=== PATIENT | female | born 1950 | race Caucasian/White ===

== ENCOUNTER → 2023-11-08 11:43 | Outpatient (REF) | payer MEDICARE, OTHER, SELFPAY | LOC: HWWDC 11:43 | PROVIDERS: ATTENDING PHYSICIAN Family Medicine | DX: Z12.31 Encounter for screening mammogram for malignant neoplasm of breast (principal) | CPT/HCPCS: 77063; 77067 ==

== ENCOUNTER 2024-01-15 10:04 | Emergency (ER) | payer MEDICARE, OTHER, SELFPAY ==
[2024-01-15 10:12] VITALS: BP 131/59
--- NOTE | 2024-01-15 10:50 | ED.GENMED ---
History of Present Illness
General
Chief Complaint: Abdominal Symptoms
Time Seen by Provider: 01/15/24 10:38
History of Present Illness
History of Present Illness:
73-year-old female with history of insulin-dependent diabetes, CHF, hypertension, and hyperlipidemia presents to the emergency department for evaluation of persistent nausea and general malaise as well as diarrhea. Initially became sick on
while visiting family in [place], went to the ER locally in [place], received IV fluids and nausea medication, had a CT scan showing no acute process and labs revealing mild DYANA. She was recommended to be admitted for IV fluids however
declined. Concerned that she has not urinated in greater than 24 hours. Reports generalized myalgias as well.
Past History
Past History
ED Past Medical History: CAD, CVA, HTN, Hypercholesterolemia, IDDM, [place] and Other (Ulcer, Cellulitis, Upper GI bleeding)
ED Past Surgical History: Cardiac (Stent X 2, Pacemaker), Cholecystectomy and Other (hernia)
Social History
Tobacco: Non-smoker
Alcohol: None
Personal:
Living: alone
Family History
Family History: Other (Coronary artery disease, diabetes, mother with polio, father with [place])
Review of Systems
Review of Systems
Allergies reviewed?: Yes
All Other Systems: ROS reviewed and negative except as documented in HPI and ROS
Phy Exam
Physical Exam
Physical Exam:
GEN: Well appearing, NAD, WDWN
Eyes: PERRLA, EOMs intact, no scleral icterus
HENT: NCAT, oral mucosa moist
Lungs: CTAB, no wheezes, rales, rhonchi, normal chest wall excursion
Cardiac: RRR, no M/R/G, no peripheral edema. Radial pulses 2+ bilat
Abdomen: S, NT, ND, NABS, no masses or hepatosplenomegaly
Neuro: AO x 3
MSK: No gross deformity or ecchymosis. No edema. No digital clubbing
Skin: No rashes, petechiae. Normal color, no pallor or jaundice.
Psych: Calm, cooperative, proper hygiene
Course
Orders/Labs/Results
Orders:
Orders
01/15/24 10:48
0.9% Sodium Chloride 1000 ml [Nss] 1,000 ml IV BOLUS
01/15/24 10:49
Ondansetron Injectable [Zofran] 4 mg IV NOW STA
01/15/24 10:53
Complete Blood Count/With Diff Urgent
Comprehensive Metabolic Panel Urgent
Lipase Urgent
01/15/24 13:27
Furosemide [Lasix] 20 mg IV NOW STA
Abnormal Lab Results
01/15/24
10:53
WBC 4.0 L 10^3/uL
(4.8-10.8)
Plt Count 64 L 10^3/uL
(130-400)
MPV 13.8 H fL
(7.4-10.4)
Absolute Lymphs (auto) 0.8 L 10^3/uL
(1.2-3.4)
Glucose 182 H mg/dl
(70-99)
Calcium 8.2 L mg/dl
(8.4-10.2)
Total Protein 5.7 L g/dl
(6.3-8.2)
01/15/24 10:53
01/15/24 10:53
Vital Signs
Initial and Last Documented VS:
Initial Vital Signs
Temp Pulse Resp BP Pulse Ox
97.9 F 64 16 131/59 95
01/15/24 10:12 01/15/24 10:12 01/15/24 10:12 01/15/24 10:12 01/15/24 10:12
Last Documented Vital Signs
Temp Pulse Resp BP Pulse Ox
97.9 F 74 16 119/84 99
01/15/24 10:12 01/15/24 14:40 12/02/24 14:40 01/15/24 14:40 01/15/24 14:40
MDM/Problems Addressed
MDM/Problems Addressed:
Patient's labs improved compared to review of records from her hospital stay in [place]. Likely self-limited viral syndrome, tolerating p.o. at time of discharge. Recommend outpatient stool culture if diarrhea persist for 3-5 further days
*Critical Care Note
Total Time (30-74mins, 75-104mins- exclusive of procedures): Not Applicable
ED Attending Note
-
Portions of this chart may have been created with voice recognition software.� Occasional wrong word or��sound alike� substitutions may have occurred due to the inherent limitations of voice recognition software.
Discharge Plan
Departure
Patient Disposition: Home (Routine Discharge)
Date of Disposition: 01/15/24
Time of Disposition: 14:22
Patient with high blood pressure during this ER visit?: No
Discharge Problem:
Gastroenteritis
Instructions: Nausea and Vomiting, Adult (DC)
Prescriptions:
No Action
isosorbide mononitrate 30 MG tablet extended release 24 hr
30 mg PO DAILY
aspirin 81 MG tablet,delayed release (DR/EC)
81 mg PO DAILY
metoprolol succinate 25 MG tablet extended release 24 hr
25 mg PO DAILY
nitroglycerin 0.4 MG tablet, sublingual
0.4 mg sublingual [id number] PRN (Reason: chest pain) Qty: 25 5RF
furosemide 20 MG tablet
40 mg PO DAILY
bupropion HCl 300 MG tablet extended release 24 hr
300 mg PO DAILY
simvastatin 20 MG tablet
20 mg PO QPM
potassium chloride [Klor-Con M20] 20 MEQ tablet,ER particles/crystals
20 meq PO BID Qty: 60 0RF
Jardiance 10 MG tablet
10 mg PO DAILY Qty: 30 0RF
pantoprazole 40 MG tablet,delayed release (DR/EC)
40 mg PO HS
losartan 100 MG tablet
25 mg PO DAILY
Calcium 1200mg +D3
1 tab PO HS
insulin degludec [Tresiba FlexTouch U-100] 100 UNIT/ML insulin pen
10 unit SC HS
timolol 0.5 % Drops
1 drp OPHTHALMIC (EYE) BID
metformin 500 mg Tablet
500 mg PO DAILY
Referrals:
Tommie Knight Jr., DO [Family Provider] -
Interventions
Interventions:
*Risk Screen - Suicide Last Done: 01/15/24 10:15
*General Assessment Last Done: 01/15/24 14:07
*Neglect/Abuse Screening Last Done: 01/15/24 10:15
*ED COVID-19 Vaccine History Last Done: 01/15/24 14:07
*Nursing Disposition Last Done: 01/15/24 14:40
HQ-Cdqxpq-Ikymlczqpd Assessment Last Done: 01/15/24 14:07
Discharge Date and Time
Discharge Date/Time: 01/15/24 14:40
Print Language: KYRGYZ
[2024-01-15 10:51] VITALS: BP 114/56
[2024-01-15] MEDS: NSS 1000 IV (10:58)
[2024-01-15] MEDS: ZOFRAN 4 MG IV (10:58)
[2024-01-15 11:00] VITALS: BP 117/53
[2024-01-15 11:13] LABS: ALT (SGPT) 24 U/L (0-35); AST (SGOT) 29 U/L (14-36); Albumin 3.5 g/dl (3.5-5.0); Alkaline Phosphatase 50 U/L (38-126); Blood Urea Nitrogen 11 mg/dl (7-17); Calcium 8.2 mg/dl (8.4-10.2); Carbon Dioxide 25 mmol/L (22-30); Chloride 105 mmol/L (98-107); Glucose 182 mg/dl (70-99); Lipase 47 U/L (23-300); Potassium 3.5 mmol/L (3.5-5.1); Sodium 139 mmol/L (135-145); Total Bilirubin 0.9 mg/dl (0.2-1.3); Total Protein 5.7 g/dl (6.3-8.2); eGFR > 60.00
[2024-01-15 11:14] LABS: % Basophils 0.7 % (0-2); % Eosinophils 2.5 % (0-6); % Immature Granulocytes 0.5 % (0-0.5); % Lymphocytes 20.6 % (20.5-51.1); % Monocytes 6.7 % (1.7-9.3); Absolute Eosinophils 0.1 10^3/uL (0-0.7); Absolute Lymphocytes 0.8 10^3/uL (1.2-3.4); Absolute Monocytes 0.3 10^3/uL (0.1-0.6); Absolute Neutrophils 2.8 10^3/uL (1.4-6.5); Hematocrit 39.8 % (37.0-47.0); Hemoglobin 13.8 g/dL (12.0-16.0); Mean Corp Hgb Conc. 34.7 g/dL (33.0-37.0); Mean Corpuscular Hgb 30.7 pg (27.0-31.0); Mean Corpuscular Volume 88.6 fL (81.0-99.0); Nucleated Red Blood Cells % 0 %; Red Blood Cell Count 4.49 10^6/uL (4.20-5.40); Red Cell Dist. Width 13.1 % (11.5-14.5)
[2024-01-15 12:00] VITALS: BP 125/58
[2024-01-15 12:29] LABS: Mean Platelet Volume 13.8 fL (7.4-10.4); Platelet Count 64 10^3/uL (130-400)
[2024-01-15 13:00] VITALS: BP 121/68
[2024-01-15] MEDS: LASIX 20 MG IV (13:36)
[2024-01-15 14:40] VITALS: BP 119/84
== END 2024-01-15 14:40 | disposition home or self-care (01) ==
LOC: EMR 10:04
PROVIDERS: Physician Assistant; EMERGENCY PHYSICIAN Emergency Medicine; FAMILY PHYSICIAN Family Medicine
DX: K52.9 Noninfective gastroenteritis and colitis, unspecified (principal); I50.9 Heart failure, unspecified; I11.0 Hypertensive heart disease with heart failure; E78.00 Pure hypercholesterolemia, unspecified; E11.9 Type 2 diabetes mellitus without complications
CPT/HCPCS: 99284; 96374; 96375; 96361; 80053; 83690; 85025

== ENCOUNTER → 2024-05-06 11:09 | Outpatient (REF) | payer MEDICARE, OTHER, SELFPAY | LOC: HWRCS 11:09 | PROVIDERS: ATTENDING PHYSICIAN Nurse Practitioner Gerontology; FAMILY PHYSICIAN Family Medicine | DX: I50.32 Chronic diastolic (congestive) heart failure (principal); Z95.2 Presence of prosthetic heart valve | CPT/HCPCS: 93306 ==

== ENCOUNTER 2024-06-21 13:01 | Emergency (ER) | payer MEDICARE, OTHER, SELFPAY ==
[2024-06-21 13:03] VITALS: BP 122/66
[2024-06-21 13:59] LABS: Hematocrit 41.5 % (37.0-47.0); Mean Corp Hgb Conc. 33.7 g/dL (33.0-37.0); Mean Corpuscular Hgb 30.2 pg (27.0-31.0); Mean Corpuscular Volume 89.6 fL (81.0-99.0); Red Blood Cell Count 4.63 10^6/uL (4.20-5.40); White Blood Cell Count 6.3 10^3/uL (4.8-10.8)
[2024-06-21 14:00] LABS: % Basophils 0.8 % (0-2); % Eosinophils 1.8 % (0-6); % Immature Granulocytes 0.5 % (0-0.5); % Lymphocytes 16.1 % (20.5-51.1); % Monocytes 6.9 % (1.7-9.3); % Neutrophils 73.9 % (42.2-75.2); Absolute Basophils 0.1 10^3/uL (0-0.2); Absolute Eosinophils 0.1 10^3/uL (0-0.7); Absolute Monocytes 0.4 10^3/uL (0.1-0.6); Absolute Neutrophils 4.6 10^3/uL (1.4-6.5); Nucleated Red Blood Cells % 0 %
[2024-06-21 14:02] LABS: ALT (SGPT) 33 U/L (0-35); AST (SGOT) 26 U/L (14-36); Albumin 4.2 g/dl (3.5-5.0); Alkaline Phosphatase 64 U/L (38-126); Blood Urea Nitrogen 21 mg/dl (7-17); Calcium 9.1 mg/dl (8.4-10.2); Carbon Dioxide 25 mmol/L (22-30); Chloride 106 mmol/L (98-107); Glucose 164 mg/dl (70-99); Potassium 4.5 mmol/L (3.5-5.1); Sodium 141 mmol/L (135-145); Total Protein 6.4 g/dl (6.3-8.2); eGFR 59.12
[2024-06-21 14:12] LABS: Troponin I < 0.012 ng/ml
[2024-06-21 14:55] LABS: Platelet Count 88 10^3/uL (130-400)
--- NOTE | 2024-06-21 15:56 | ED.GENMED ---
History of Present Illness
General
Chief Complaint: Abdominal Symptoms
Source: patient
Exam Limitations: none
Time Seen by Provider: 06/21/24 15:53
Nursing documentation reviewed up to this point in time: agreed with
History of Present Illness
History of Present Illness:
74-year-old female with history of CVA, CHF, HTN, HLD, [place], pacemaker, cardiac stents, TAVR 2020, GI bleed, IDDM, depression presents stating she had diarrhea all day 5 days ago, took one Imodium, none since. Has been feeling fatigued, today 'my
heaad got fuzzy,' 'I'm not waking very well, I can't walk a straight line even with my walker.' 'The machine on my night stand is going off every night for a week,' 'my blood sugar was 60 on Monday and 55 on Monday for the first time in my life,'
'the P/T came and took my blood pressure and it was 85/55 on Monday.'
States the P/T called her PCP about her blood pressure and was told to contact her semiconductor engineer, who she states told her to stop her BP med
States the P/T also called her Business Asst about the low blood sugars and she was told to stop her Insulin.
Has also been having pain around her pacemaker site, she spoke to the semiconductor engineer at [facility] 2 weeks ago and had echo and EKG in office and reassured.
Her PCP added a second antidepressant approx 3 months ago but it 'made me lethargic' and she is in process of weaning off of it. She cannot recall the name (pharmacy updating med list now)
She states she lives alone and is concerned with the low blood sugars and BP. She does admit that her low BP was not rechecked.
Past History
Past History
ED Past Medical History: CAD, CVA, HTN, Hypercholesterolemia, IDDM, [place] and Other (Ulcer, Cellulitis, Upper GI bleeding)
ED Past Surgical History: Cardiac (Stent X 2, Pacemaker), Cholecystectomy and Other (hernia)
Social History
Tobacco: Non-smoker
Alcohol: None
Personal:
Living: alone
Family History
Family History: Other (Coronary artery disease, diabetes, mother with polio, father with [place])
Review of Systems
Review of Systems
Allergies reviewed?: Yes
All Other Systems: ROS reviewed and negative except as documented in HPI and ROS
Constitutional: Reports fatigue; Denies fever
Respiratory: Denies trouble breathing
Cardiac: Denies chest pain
ABD/GI: Denies abdominal pain, nausea, vomiting, diarrhea, bloody stools or black stools
: Denies dysuria, frequency or difficulty voiding
Musculoskeletal: Reports edema (chronic bilateral ankle edema)
Skin: Reports no symptoms
Neurological: Reports headache (states this is chronic, intermittent, no change from her usual); Denies dizzy (states lightheaded at times with getting up to stand, this is not new for her), weakness or numbness
Psychiatric: Reports anxiety (about health)
Phy Exam
Physical Exam
Physical Exam:
GENERAL: No acute distress. A&Ox3.
CONSTITUTIONAL: Afebrile.
EYES: clear, conjunctivae normal
ENMT: moist mucus membranes, Pharynx nl
RESPIRATORY: Regular respirations, nonlabored, lungs clear.
CARDIOVASCULAR: Regular rate and rhythm, no murmurs, no rubs.
GI: Soft, nontender, normal BS
MUSCULOSKELETAL: Moves with ease. Well perfused. +1 bilateral ankle edema.
SKIN: Warm, dry, pink
PSYCH: Normal mood and affect. Well kept, interactive and appropriate
NEUROLOGIC: Awake, alert and oriented. No focal neurological deficits
Course
Orders/Labs/Results
Orders:
Orders
06/21/24 13:15
Electrocardiogram (*1) Urgent
Reason for Study: Chest Pain
Cardiac Monitoring- Treatment ONCE
EKG- Treatment ONCE
IV Insert/Care/Rem.- Treatment PRN
O2 Therapy [RESP] Urgent
Titrate/Wean O2 to maintain O2 sat greater than (%): 90
Special Instructions: Maintain sats >/=90%
Pulse Ox/spot Check [RESP] Urgent
Quantity: 1
Special Instructions: ON ROOM AIR
06/21/24 13:25
Complete Blood Count/With Diff Urgent
Comprehensive Metabolic Panel Urgent
Troponin I Urgent
06/21/24 16:20
Orthostatic VS- Treatment ONCE
Abnormal Lab Results
06/21/24
13:25
Plt Count 88 L 10^3/uL
(130-400)
Absolute Lymphs (auto) 1.0 L 10^3/uL
(1.2-3.4)
Lymphocytes % 16.1 L %
(20.5-51.1)
BUN 21 H mg/dl
(7-17)
Glucose 164 H mg/dl
(70-99)
06/21/24 13:25
06/21/24 13:25
Vital Signs
Initial and Last Documented VS:
Initial Vital Signs
Temp Pulse Resp BP Pulse Ox
98.1 F 70 16 122/66 97
06/21/24 13:03 06/21/24 13:03 06/21/24 13:03 06/21/24 13:03 06/21/24 13:03
Last Documented Vital Signs
Temp Pulse Resp BP Pulse Ox
98.1 F 64 22 125/80 99
06/21/24 13:03 06/21/24 16:45 06/21/24 16:45 06/21/24 16:45 06/21/24 16:45
MDM/Problems Addressed
Differential Diagnosis Includes:
dehydration, hypoglycemia, orthostatic hypotension, anxiety
MDM/Problems Addressed:
74-year-old female with history of CVA, CHF, HTN, HLD, [place], pacemaker, cardiac stents, TAVR 2020, GI bleed, IDDM, depression presents stating she had diarrhea all day 5 days ago, took one Imodium, none since. Has been feeling fatigued, today 'my
heaad got fuzzy,' 'I'm not waking very well, I can't walk a straight line even with my walker.' 'The machine on my night stand is going off every night for a week,' 'my blood sugar was 60 on Monday and 55 on Monday for the first time in my life,'
'the P/T came and took my blood pressure and it was 85/55 on Monday.'
States the P/T called her PCP about her blood pressure and was told to contact her semiconductor engineer, who she states told her to stop her BP med
States the P/T also called her Business Asst about the low blood sugars and she was told to 'stop my Insulin.'
Has also been having pain around her pacemaker site, she spoke to the semiconductor engineer at [facility] 2 weeks ago and had echo and EKG in office and reassured.
Her PCP added a second antidepressant approx 3 months ago but it 'made me lethargic' and she is in process of weaning off of it. She cannot recall the name (pharmacy updating med list now)
She states she lives alone and is concerned with the low blood sugars and BP. She does admit that her low BP was not rechecked.
Med list updated
Pt has Dexcom on her arm and can see her BS at any time. It is now 119. She states she hasn't eaten all day.
4:45 p.m.
Orthostatics neg
Pt admits her lightheadedness is chronic and she's been told to change positions slowly. She is on Eliquis and denies ant recent head injury, states her headache is mild and not unusual for her. No indication for head CT at this time.
She is OOB and ambulating well with her cane.
When asked about her ankle swelling, she states she does not take her Lasix because if the water in her ankles goes away, her legs won't hold her up
She obviously needs a lot of teaching/education about her meds, her symptoms, dealing with her diabetes and BP, etc. Strongly encouraged daughter to go with her to her next appt. and daughter is willing to do this.
Blood sugar 126 on her monitor
She is asking to be discharged. Offered food tray but daughter ordered them dinner and she will eat at home.
Nothing worrisome in workup here today.
It is reasonable to hold her Tresiba 10 Units P.M. until she speaks with her Business Asst Monday
Pt reassured. Stable for discharge
*EKG
EKG Intrepretation Date: 06/21/24
Interpretation: abnormal
Comparison EKG: changes noted (atrial paced)
Heart Rate: 74
Rate: normal
Rhythm: other (atrial paced)
Saxe: normal axis
Interval: other (prolonged AV conduction)
QRS Pattern: wide non-specific
Ischemia: no ischemia
*Critical Care Note
Total Time (30-74mins, 75-104mins- exclusive of procedures): Not Applicable
ED Attending Note
-
Portions of this chart may have been created with voice recognition software.� Occasional wrong word or��sound alike� substitutions may have occurred due to the inherent limitations of voice recognition software.
Discharge Plan
Departure
Patient Disposition: Home (Routine Discharge)
Date of Disposition: 06/21/24
Time of Disposition: 16:46
Patient with high blood pressure during this ER visit?: No
Condition: Good
Discharge Problem:
Fatigue, Anxiety about health
Instructions: Fatigue (DC), Anxiety in adults - ED discharge instructions
Prescriptions:
No Action
metoprolol succinate 25 MG tablet extended release 24 hr
12.5 mg PO DAILY
nitroglycerin 0.4 MG tablet, sublingual
0.4 mg sublingual [id number] PRN (Reason: chest pain) Qty: 25 5RF
bupropion HCl 300 MG tablet extended release 24 hr
300 mg PO DAILY
Jardiance 10 MG tablet
10 mg PO DAILY Qty: 30 0RF
pantoprazole 40 MG tablet,delayed release (DR/EC)
40 mg PO HS
calcium carbonate-vitamin D3 [Calcium 600 + D(3)] 600 mg-10 mcg (400 unit) Tablet
1 tab PO DAILY Qty: 0
insulin degludec [Tresiba FlexTouch U-100] 100 UNIT/ML insulin pen
10 unit SC HS
Theragen Tablet
1 tab PO DAILY
sertraline 25 mg Tablet
25 mg PO DAILY
metformin 500 mg Tablet Extended Release 24 Hr
500 mg PO QPM
Eliquis 5 mg Tablet
5 mg PO BID
Referrals:
Your, Primary doctor and Business Asst [Other] - Follow up in 2-3 days
Activity Restrictions/Additional Instructions:
As we discussed, nothing worrisome in your workup here today
Your blood pressure is good, your blood sugar is good.
Call on Monday and make an appointment with your primary doctor. Have your daughter go with you to your next visit to straighten all these issues out that you are having confusion and concerned about. Call your mail inserter on Monday and
confirm that you are to stop your insulin. Keep a close watch on your blood sugar over the weekend.
Continue to go from a laying down to a sitting position and then to a standing position slowly as you have been instructed due to your feeling lightheaded when you get up.
Return here over the weekend if you become significantly more lightheaded, your blood sugar remains below 60, your blood pressure remains low or you feel sicker in any way
Interventions
Interventions:
*Risk Screen - Suicide Last Done: 06/21/24 13:03
*General Assessment Last Done: 06/21/24 13:03
*Neglect/Abuse Screening Last Done: 06/21/24 13:03
*ED- Fall Risk Assessment Last Done: 06/21/24 17:05
*ED COVID-19 Vaccine History Last Done: 06/21/24 17:05
*Nursing Disposition Last Done: 06/21/24 17:05
OX-Msimcl-Dcxzwnmrku Assessment Last Done: 06/21/24 16:58
Discharge Date and Time
Discharge Date/Time: 06/21/24 17:13
Print Language: CHINESE
[2024-06-21 16:20] VITALS: BP 125/80; BP 132/85; BP 136/71; PULSE 64; PULSE 68; PULSE 69
[2024-06-21 16:45] VITALS: BP 125/80
== END 2024-06-21 17:13 | disposition home or self-care (01) ==
LOC: EMR 13:01
PROVIDERS: Emergency Medicine; EMERGENCY PHYSICIAN Student in an Organized Health Care Education/Training Program
DX: F41.9 Anxiety disorder, unspecified (principal); R53.83 Other fatigue; I11.0 Hypertensive heart disease with heart failure; I50.9 Heart failure, unspecified; E78.00 Pure hypercholesterolemia, unspecified; E11.9 Type 2 diabetes mellitus without complications; I25.10 Atherosclerotic heart disease of native coronary artery without angina pectoris; Z79.01 Long term (current) use of anticoagulants; Z82.49 Family history of ischemic heart disease and other diseases of the circulatory system; Z83.3 Family history of diabetes mellitus; Z86.73 Personal history of transient ischemic attack (TIA), and cerebral infarction without residual deficits; Z90.49 Acquired absence of other specified parts of digestive tract; Z95.0 Presence of cardiac pacemaker; Z95.5 Presence of coronary angioplasty implant and graft
CPT/HCPCS: 99283; 80053; 84484; 85025; 93005

== ENCOUNTER 2024-07-14 14:41 | Emergency (ER) | payer MEDICARE, OTHER, SELFPAY ==
[2024-07-14 14:45] VITALS: BP 117/59
--- NOTE | 2024-07-14 17:45 | ED.GENMED ---
History of Present Illness
General
Chief Complaint: Musculo-Skeletal Complaint
Time Seen by Provider: 07/14/24 17:28
History of Present Illness
History of Present Illness:
74-year-old female with history of A-fib, insulin-dependent diabetes, and chronic anticoagulant use presents to the emergency department for evaluation of nontraumatic right hip pain that has been worsening for the past 3 days. Having difficulty
walking without assistance. Denies any recent falls.
Past History
Past History
ED Past Medical History: CAD, CVA, HTN, Hypercholesterolemia, IDDM, [place] and Other (Ulcer, Cellulitis, Upper GI bleeding)
ED Past Surgical History: Cardiac (Stent X 2, Pacemaker), Cholecystectomy and Other (hernia)
Social History
Tobacco: Non-smoker
Alcohol: None
Personal:
Living: alone
Family History
Family History: Other (Coronary artery disease, diabetes, mother with polio, father with [place])
Review of Systems
Review of Systems
Allergies reviewed?: Yes
All Other Systems: ROS reviewed and negative except as documented in HPI and ROS
Phy Exam
Physical Exam
Physical Exam:
GEN: Well appearing, NAD, WDWN
HEENT: Oral mucosa moist, no scleral icterus
Cardiac: Regular rate
Lung: No respiratory distress, no tachypnea
MSK: No gross deformity or injuries. Reproducible tenderness to the lateral gluteal region and hip, right hip range of motion normal without reproduced pain
Skin: Good color, no pallor or jaundice, no rashes
Neuro: AO x3, moves all extremities freely
Psych: Calm, cooperative
Course
Orders/Labs/Results
Orders:
Orders
07/14/24 17:39
CR Hip - RT w/wo Pel 2-3 Vw* Urgent
Comment:
Reason For Exam: R hip pain
Include a pelvis x-ray?: Yes
07/14/24 17:44
Acetaminophen [Tylenol] 650 mg PO NOW STA
Oxycodone [Roxicodone] 5 mg PO NOW STA
07/14/24 20:09
Oxycodone [Roxicodone] 5 mg PO NOW STA
Vital Signs
Initial and Last Documented VS:
Initial Vital Signs
Temp Pulse Resp BP Pulse Ox
97.8 F 65 16 117/59 98
07/14/24 14:45 07/14/24 14:45 07/14/24 14:45 07/14/24 14:45 07/14/24 14:45
Last Documented Vital Signs
Temp Pulse Resp BP Pulse Ox
97.8 F 69 18 145/77 98
07/14/24 14:45 07/14/24 19:52 07/14/24 19:52 07/14/24 19:52 07/14/24 19:52
MDM/Problems Addressed
MDM/Problems Addressed:
Likely nontraumatic hip bursitis. Patient was able to ambulate steadily with walker assistance throughout the ED after analgesics were given. X-rays were unremarkable. Recommend outpatient Ortho follow-up. Given that she is on anticoagulants and
is a diabetic, NSAIDs and corticosteroids are not advised
*Critical Care Note
Total Time (30-74mins, 75-104mins- exclusive of procedures): Not Applicable
ED Attending Note
-
Portions of this chart may have been created with voice recognition software.� Occasional wrong word or��sound alike� substitutions may have occurred due to the inherent limitations of voice recognition software.
Discharge Plan
Departure
Patient Disposition: Home (Routine Discharge)
Date of Disposition: 07/14/24
Time of Disposition: 20:07
Patient with high blood pressure during this ER visit?: No
Discharge Problem:
Bursitis of hip, right
Instructions: Hip Bursitis Exercises, Hip Pain ED
Prescriptions:
New
oxycodone 5 mg tablet
5 mg PO Q6H PRN (Reason: Pain) Qty: 12 0RF
No Action
metoprolol succinate 25 MG tablet extended release 24 hr
12.5 mg PO DAILY
nitroglycerin 0.4 MG tablet, sublingual
0.4 mg sublingual [id number] PRN (Reason: chest pain) Qty: 25 5RF
bupropion HCl 300 MG tablet extended release 24 hr
300 mg PO DAILY
Jardiance 10 MG tablet
10 mg PO DAILY Qty: 30 0RF
pantoprazole 40 MG tablet,delayed release (DR/EC)
40 mg PO HS
calcium carbonate-vitamin D3 [Calcium 600 + D(3)] 600 mg-10 mcg (400 unit) Tablet
1 tab PO DAILY Qty: 0
insulin degludec [Tresiba FlexTouch U-100] 100 UNIT/ML insulin pen
10 unit SC HS
Theragen Tablet
1 tab PO DAILY
sertraline 25 mg Tablet
25 mg PO DAILY
metformin 500 mg Tablet Extended Release 24 Hr
500 mg PO QPM
Eliquis 5 mg Tablet
5 mg PO BID
Referrals:
Tommie Knight Jr., DO [Family Provider, Internal Medicine]
Joe Matta MD [Active, Orthopedics]
Interventions
Interventions:
*Risk Screen - Suicide Last Done: 07/14/24 14:45
*General Assessment Last Done: 07/14/24 19:05
*Neglect/Abuse Screening Last Done: 07/14/24 14:45
*ED- Fall Risk Assessment Last Done: 07/14/24 19:05
*ED COVID-19 Vaccine History Last Done: 07/14/24 19:05
*Nursing Disposition Last Done: 07/14/24 20:43
ED-Musculoskeletal Assessment Last Done: 07/14/24 17:52
Discharge Date and Time
Discharge Date/Time: 07/14/24 20:43
Print Language: BENGALI
[2024-07-14] MEDS: TYLENOL 650 MG PO (17:53)
[2024-07-14] MEDS: ROXICODONE 5 MG PO ×2 (17:53→20:15)
[2024-07-14 19:52] VITALS: BP 145/77
== END 2024-07-14 20:43 | disposition home or self-care (01) ==
LOC: EMR 14:41
PROVIDERS: EMERGENCY PHYSICIAN Student in an Organized Health Care Education/Training Program; FAMILY PHYSICIAN Family Medicine
DX: M70.71 Other bursitis of hip, right hip (principal); R26.2 Difficulty in walking, not elsewhere classified; M25.551 Pain in right hip; E11.9 Type 2 diabetes mellitus without complications; I48.91 Unspecified atrial fibrillation; I25.10 Atherosclerotic heart disease of native coronary artery without angina pectoris; I10 Essential (primary) hypertension; E78.00 Pure hypercholesterolemia, unspecified; I25.2 Old myocardial infarction; Z79.4 Long term (current) use of insulin; Z79.01 Long term (current) use of anticoagulants; Z95.5 Presence of coronary angioplasty implant and graft; Z95.0 Presence of cardiac pacemaker; Z86.73 Personal history of transient ischemic attack (TIA), and cerebral infarction without residual deficits; Z90.49 Acquired absence of other specified parts of digestive tract
CPT/HCPCS: 99283; 73502

== ENCOUNTER 2024-09-20 11:24 | Emergency (ER) | payer MEDICARE, OTHER, SELFPAY ==
[2024-09-20 11:33] VITALS: BP 128/72
[2024-09-20 12:09] VITALS: BP 135/62
[2024-09-20 12:39] VITALS: BP 135/62
[2024-09-20] MEDS: TYLENOL 1000 MG PO (14:03)
[2024-09-20 14:08] VITALS: BP 127/67
[2024-09-20 14:09] VITALS: BP 127/67
--- NOTE | 2024-09-20 14:14 | ED.GENMED ---
History of Present Illness
General
Chief Complaint: Skin Problem
Source: patient
Exam Limitations: none
Time Seen by Provider: 09/20/24 13:04
Nursing documentation reviewed up to this point in time: agreed with
History of Present Illness
History of Present Illness:
74-year-old female past medical history of CHF, hypertension, CAD, diabetes, previous stroke presenting to the emergency department today with concerns of wound to the right charles that had ongoing pain over the past 2 months after mild injury. Pain
is seemingly been worse today extending up into her right thigh. Has been using compression stockings without relief. Has seen multiple specialists regarding it. Denies any chest pain shortness of breath no history of blood clots is currently
taking Eliquis.
Past History
Past History
ED Past Medical History: CAD, CVA, HTN, Hypercholesterolemia, IDDM, KS and Other (Ulcer, Cellulitis, Upper GI bleeding)
ED Past Surgical History: Cardiac (Stent X 2, Pacemaker), Cholecystectomy and Other (hernia)
Social History
Tobacco: Non-smoker
Alcohol: None
Personal:
Living: alone
Family History
Family History: Other (Coronary artery disease, diabetes, mother with polio, father with KS)
Review of Systems
Review of Systems
Allergies reviewed?: Yes
All Other Systems: ROS reviewed and negative except as documented in HPI and ROS
Phy Exam
Physical Exam
Physical Exam:
GENERAL: Alert , in no apparent distress
EYE: pupils equal and reactive
NECK: Supple, no significant adenopathy.
ENT: o/p clr, mmm.
CARDIAC: Regular rate and rhythm .
LUNGS: Clear breath sounds bilaterally, no acute respiratory distress, no wheezes/rales/rhonchi
ABDOMEN: Soft, without focal tenderness, no r/g, no cvat
NEUROLOGICAL: Alert and oriented, no focal neuro deficits
SKIN: Small superficial wound to the right anterior charles at the midpoint roughly 1-1/2 x 3 mm in vertical orientation does have tenderness throughout the lower extremities bilaterally to light palpation. Warm and dry, skin intact.
MUSCULOSKELETAL: No edema, well perfused.
PSYCH: Normal and appropriate interaction.
Course
Orders/Labs/Results
Orders:
Orders
09/20/24 12:33
Periph Venous Lwr Ext Rt US [US Periph Venous LOWER Ext RT] Urgent
Comment:
Reason For Exam: calf pain
09/20/24 13:55
Acetaminophen [Tylenol] 1,000 mg PO NOW STA
CR Leg Tibia/fibula Right 2 Vw Urgent
Comment:
Reason For Exam: right charles injury
Pt Eval And Treat Urgent
Activity Level: Ambulate
09/20/24 14:10
CBC/With Diff [Complete Blood Count/With Diff] Urgent
CMP [Comprehensive Metabolic Panel] Urgent
Abnormal Lab Results
09/20/24
14:10
Plt Count 116 L 10^3/uL
(130-400)
MPV 13.1 H fL
(7.4-10.4)
Lymphocytes % 19.4 L %
(20.5-51.1)
BUN 29 H mg/dl
(7-17)
Glucose 157 H mg/dl
(70-99)
Total Protein 6.2 L g/dl
(6.3-8.2)
09/20/24 14:10
09/20/24 14:10
Vital Signs
Initial and Last Documented VS:
Initial Vital Signs
Temp Pulse Resp BP Pulse Ox
97.8 F 78 16 128/72 98
09/20/24 11:33 09/20/24 11:33 09/20/24 11:33 09/20/24 11:33 09/20/24 11:33
Last Documented Vital Signs
Temp Pulse Resp BP Pulse Ox
97.8 F 61 20 127/67 99
09/20/24 11:33 09/20/24 14:09 09/20/24 14:09 09/20/24 14:09 09/20/24 14:16
MDM/Problems Addressed
MDM/Problems Addressed:
74-year-old female presenting to the emergency department today with concerns of right-sided leg pain. Also does have some pain to the left side. She has been taking antibiotics for the right charles due to chronic wound. Has been following up with
wound care. On arrival vital signs are normal patient no distress normal distal pulses ultrasound without signs of DVT. Patient has good pulses confirmed with Doppler labs unremarkable no white count no additional emergent findings on labs. X-ray
without emergent findings as well. Patient able to ambulate well. No evidence of any emergent process causing symptoms advised for close outpatient follow-up. Return precautions given.
*Pulse Oximetry
SaO2: 99
Oxygen Mode of Delivery: Room air
Patient hypoxic: no (99)
*Critical Care Note
Total Time (30-74mins, 75-104mins- exclusive of procedures): Not Applicable
ED Attending Note
-
Portions of this chart may have been created with voice recognition software.� Occasional wrong word or��sound alike� substitutions may have occurred due to the inherent limitations of voice recognition software.
Discharge Plan
Departure
Patient Disposition: Home (Routine Discharge)
Date of Disposition: 09/20/24
Time of Disposition: 15:25
Patient with high blood pressure during this ER visit?: No
Condition: Good
Covid-19: Not Applicable
Discharge Problem:
Acute leg pain
Instructions: [facility]
Prescriptions:
No Action
metoprolol succinate 25 MG tablet extended release 24 hr
12.5 mg PO DAILY
nitroglycerin 0.4 MG tablet, sublingual
0.4 mg sublingual [id number] PRN (Reason: chest pain) Qty: 25 5RF
bupropion HCl 300 MG tablet extended release 24 hr
300 mg PO DAILY
Jardiance 10 MG tablet
10 mg PO DAILY Qty: 30 0RF
pantoprazole 40 MG tablet,delayed release (DR/EC)
40 mg PO HS
calcium carbonate-vitamin D3 [Calcium 600 + D(3)] 600 mg-10 mcg (400 unit) Tablet
1 tab PO DAILY Qty: 0
insulin degludec [Tresiba FlexTouch U-100] 100 UNIT/ML insulin pen
10 unit SC HS
Theragen Tablet
1 tab PO DAILY
sertraline 25 mg Tablet
25 mg PO DAILY
metformin 500 mg Tablet Extended Release 24 Hr
500 mg PO QPM
Eliquis 5 mg Tablet
5 mg PO BID
oxycodone 5 mg tablet
5 mg PO Q6H PRN (Reason: Pain) Qty: 12 0RF
Referrals:
Jony Rosales MD [Active, Anesthesiology] - Follow up in 5-7 days
Tommie Knight Jr., [Family Provider, Internal Medicine]
Activity Restrictions/Additional Instructions:
You came to the emergency department today with concerns of leg pain. Here you had a reassuring assessment. Please follow closely with the pain management doctor. Return for any worsening, new or concerning symptoms.
Interventions
Interventions:
*Risk Screen - Suicide Last Done: 09/20/24 11:33
*Neglect/Abuse Screening Last Done: 09/20/24 11:33
ED-Skin Assessment Last Done: 09/20/24 12:39
Discharge Date and Time
Print Language: IRISH
[2024-09-20 14:27] LABS: Mean Corpuscular Volume 88.4 fL (81.0-99.0)
[2024-09-20 14:28] LABS: Hematocrit 40.6 % (37.0-47.0); Hemoglobin 13.7 g/dL (12.0-16.0); Mean Corp Hgb Conc. 34.1 g/dL (33.0-37.0); Nucleated Red Blood Cells % 0 %; Platelet Count 116 10^3/uL (130-400); Red Cell Dist. Width 13.1 % (11.5-14.5)
[2024-09-20 14:33] LABS: ALT (SGPT) 25 U/L (0-35); AST (SGOT) 25 U/L (14-36); Albumin 3.9 g/dl (3.5-5.0); Alkaline Phosphatase 61 U/L (38-126); Blood Urea Nitrogen 29 mg/dl (7-17); Calcium 9.1 mg/dl (8.4-10.2); Carbon Dioxide 28 mmol/L (22-30); Chloride 105 mmol/L (98-107); Glucose 157 mg/dl (70-99); Potassium 3.8 mmol/L (3.5-5.1); Sodium 137 mmol/L (135-145); Total Protein 6.2 g/dl (6.3-8.2); eGFR > 60.00
[2024-09-20 16:05] VITALS: BP 145/75
== END 2024-09-20 16:00 | disposition home or self-care (01) ==
LOC: EMR 11:24
PROVIDERS: Physician Assistant; EMERGENCY PHYSICIAN Student in an Organized Health Care Education/Training Program; FAMILY PHYSICIAN Family Medicine
DX: M79.662 Pain in left lower leg (principal); E11.9 Type 2 diabetes mellitus without complications; I25.10 Atherosclerotic heart disease of native coronary artery without angina pectoris; I11.0 Hypertensive heart disease with heart failure; I50.9 Heart failure, unspecified; E78.00 Pure hypercholesterolemia, unspecified; I25.2 Old myocardial infarction; S80.921D Unspecified superficial injury of right lower leg, subsequent encounter; X58.XXXD Exposure to other specified factors, subsequent encounter; Z79.01 Long term (current) use of anticoagulants; Z79.84 Long term (current) use of oral hypoglycemic drugs; Z79.4 Long term (current) use of insulin; Z86.73 Personal history of transient ischemic attack (TIA), and cerebral infarction without residual deficits; Z95.5 Presence of coronary angioplasty implant and graft; Z95.0 Presence of cardiac pacemaker; Z82.49 Family history of ischemic heart disease and other diseases of the circulatory system; Z83.3 Family history of diabetes mellitus
CPT/HCPCS: 99284; 73590; 80053; 85025; 93971

== ENCOUNTER → 2024-11-11 10:27 | Outpatient (REF) | payer MEDICARE, OTHER, SELFPAY | LOC: HWRAD 10:27 | PROVIDERS: ATTENDING PHYSICIAN Internal Medicine Cardiovascular Disease; FAMILY PHYSICIAN Family Medicine | DX: I50.32 Chronic diastolic (congestive) heart failure (principal); R14.0 Abdominal distension (gaseous); R18.8 Other ascites | CPT/HCPCS: 76705 ==

== ENCOUNTER → 2024-11-19 12:34 | Outpatient (REF) | payer MEDICARE, OTHER, SELFPAY | LOC: RAD 12:34 | PROVIDERS: ATTENDING PHYSICIAN Podiatrist Foot & Ankle Surgery; FAMILY PHYSICIAN Family Medicine | DX: E11.51 Type 2 diabetes mellitus with diabetic peripheral angiopathy without gangrene (principal) | CPT/HCPCS: 93923 ==

== ENCOUNTER → 2025-01-20 10:31 | Outpatient (REF) | payer MEDICARE, OTHER, SELFPAY | LOC: HWWDC 10:31 | PROVIDERS: ATTENDING PHYSICIAN Family Medicine | DX: M85.89 Other specified disorders of bone density and structure, multiple sites (principal); Z13.820 Encounter for screening for osteoporosis; Z78.0 Asymptomatic menopausal state; Z12.31 Encounter for screening mammogram for malignant neoplasm of breast | CPT/HCPCS: 77063; 77067; 77080 ==